=== PATIENT | male | born 1975 | race Caucasian/White ===

== ENCOUNTER 2021-12-02 19:30 | Emergency (ER) | payer OTHER, SELFPAY ==
--- NOTE | 2021-12-02 | ECG_ITS ---
Test Reason : EPIGASTRIC PAIN Blood Pressure : / mmHG Vent. Rate : 092 BPM Atrial Rate : 092 BPM P-R Int : 148 ms QRS Dur : 076 ms QT Int : 364 ms P-R-T Axes : 014 030 031 degrees QTc Int : 450 ms Normal sinus rhythm Normal ECG No previous ECGs available Referred By: Generic ED Physician Electronically Signed By:Kraig Law
--- NOTE | ~2021-12-02 | CT_ITS ---
EXAMINATION: CT ABDOMEN AND PELVIS WITHOUT CONTRAST CLINICAL INFORMATION: Left flank pain COMPARISON: None TECHNIQUE: Multidetector volumetric imaging was performed from the superior aspect of the liver through the pubic symphysis. Sagittal and coronal reformatted images were obtained on the technologist's workstation. This CT examination was performed using dose optimization techniques as appropriate, variously including the following: *Automated exposure control *Adjustment of mA and/or kV according to patient size (this includes techniques or standardized protocols for targeted exams where dose is matched to indication/reason for exam; i.e. extremities or head) *Use of iterative reconstruction technique DLP: 883 mGy-cm FINDINGS: LUNG BASES: The visualized lung bases are unremarkable. LIVER, GALLBLADDER, AND BILIARY TREE: Liver normal in size, contour and morphology. Diffuse hepatic steatosis. No focal liver lesions. No intrahepatic or extrahepatic biliary dilatation. Gallbladder unremarkable. PANCREAS: Unremarkable. SPLEEN: Unremarkable. ADRENAL GLANDS: Unremarkable. KIDNEYS AND URETERS: There is a 4 mm calculus in the proximal left ureter, 3.5 cm distal to the ureteropelvic junction at the level of the L3 vertebral body, associated mild upstream hydroureteronephrosis and perinephric stranding. No additional urinary calculi. Right kidney unremarkable. BLADDER: Unremarkable. GASTROINTESTINAL TRACT: There are a a few scattered colonic diverticula. No evidence of diverticulitis. Normal appendix. Stomach and small bowel unremarkable. ABDOMINAL WALL: No significant hernia is appreciated. LYMPH NODES: Normal. VASCULAR: Unremarkable. PELVIC VISCERA: Unremarkable. OSSEOUS STRUCTURES: No acute or suspicious osseous abnormalities. Moderate loss of disc space height at L5-S1 with accompanying endplate osteophytes. CT/CT abdomen pelvis wo con IMPRESSION: There is a 4 mm calculus proximal LEFT ureter associated with mild upstream hydroureteronephrosis and perinephric stranding. Fleischner guidelines were followed.
[2021-12-02 19:36] VITALS: BP 182/131; PULSE 89; RESP 14; TEMP 36.9; O2SAT 98; BMI 36.6
[2021-12-02 20:22] LABS: Basophils Percent Auto 0.3 % (0-2); Eosinophils Absolute Auto 0.4 X10*3/uL (0.0-0.4); Eosinophils Percent Auto 3.6 % (0-4); Hematocrit 45.3 % (42.0-52.0); Hemoglobin 15.1 g/dl (14.0-18.0); Imm Gran Abs Auto 0.08 X10*3/uL (0.00-0.03); Imm Gran Pct Auto 0.7 % (0.0-0.4); Lymphocytes Absolute Auto 1.2 X10*3/uL (1.2-4.9); MANUAL DIFF FLAG NO; Mean Corpuscular HGB Conc 33.3 g/dl (31.0-36.0); Mean Corpuscular Volume 86.9 fL (80.0-98.0); Mean Platelet Volume 8.7 fL (9.4-12.4); Monocytes Absolute Auto 0.7 X10*3/uL (0.1-1.2); Monocytes Percent Auto 5.7 % (2-11); Neutrophils Absolute Auto 9.4 x10*3/uL (2.0-8.3); Neutrophils Percent Auto 79.7 % (45-73); Platelet Count 277 X10*3/uL (160-400); Red Blood Count 5.21 X10*6/uL (4.60-5.80); Red Cell Distribution Width 12.8 % (11.0-16.0); White Blood Count 11.8 X10*3/uL (4.8-10.8)
[2021-12-02 20:37] LABS: Alanine Aminotransferase 39 U/L (0-40); Alkaline Phosphatase 101 U/L (39-117); Anion Gap 14 (12-20); Aspartate Amino Transferase 35 U/L (5-37); Bilirubin Total 0.6 mg/dL (0.0-1.0); Blood Urea Nitrogen 11 mg/dL (9-16); Calcium 9.4 mg/dL (8.4-10.2); Carbon Dioxide 19 mmol/L (22-29); Chloride 109 mmol/L (96-108); Creatinine Clr Calc Pharmacy 96.2; Estimated Glomerular Filt Rate 59; Glucose Random 128 mg/dL (60-115); Potassium 4.2 mmol/L (3.3-5.1); Sodium 138 mmol/L (135-145); Total Protein 6.8 g/dL (6.5-8.0)
[2021-12-02 21:10] VITALS: BP 180/111; PULSE 89; RESP 22; TEMP 37.1; O2SAT 97
[2021-12-02] MEDS: ondansetron HCL 4 MG/2 ML VIAL IVPUSH (21:27)
[2021-12-02] MEDS: 0.9 % Sodium Chloride 1,000 ML 999 ML IV (21:28)
--- NOTE | 2021-12-02 21:29 | ED_ITS ---
HPI - Abdominal Pain General Chief Complaint: Abdominal Pain Stated Complaint: back pain and nausea Time Seen by Provider: 12/02/21 21:14 Source: patient and family Mode of arrival: ambulatory History of Present Illness HPI narrative: 46-year-old male with history of hypertension who presents with acute onset of left flank pain that radiates down into the left groin an anterior abdomen associated with nausea and vomiting as well as chills throughout the day. Patient also reports some dysuria but otherwise denies any diarrhea, shortness of breath and denies any history of kidney stones. Related Data Previous Rx's Medication Instructions Recorded ketorolac 10 mg tablet 10 mg PO Q6H PRN 5 Days #20 tab 12/03/21 ondansetron 4 mg disintegrating 4 mg PO Q8H PRN #10 tab 12/03/21 tablet tamsulosin 0.4 mg capsule (Flomax) 0.4 mg PO BEDTIME #5 cap 12/03/21 Allergies Allergy/AdvReac Type Severity Reaction Status Date / Time No Known Allergies Allergy Unverified 05/05/20 17:51 [No Known Allergies*] Review of Systems Review of Systems Pertinent positives and negatives as stated in HPI 10 point review of systems is otherwise negative. PMFSH Past Medical History Source: nursing notes reviewed Social History Social History Advance Directives: No Physical Exam ED Vital Signs: Vital Signs - 24 hr 12/02/21 19:36 12/02/21 21:10 12/02/21 22:46 Temperature 98.5 F 98.7 F Pulse Rate 89 89 92 Respiratory Rate 14 22 H 22 H Blood Pressure 182/131 H 180/111 H 173/119 H Pulse Oximetry 98 97 97 BMI result Body Mass Index 36.6 VITAL SIGNS: Reviewed. GENERAL: Well developed, well nourished, in no acute distress. HEAD: Normocephalic/atraumatic EYES: PERRLA, EOMI EARS: Ext canals without abnormality OROPHARYNX: no oral lesions noted, posterior pharynx clear LUNGS: Normal breath sounds. No adventitious sounds or accessory muscle use. SpO2<98> CARDIOVASCULAR: Regular rate and rhythm without noted murmurs ABDOMEN: Soft, left flank pain on palpation, non-distended with bowel sounds. SKIN: Inspection of the skin reveals no rashes NEUROLOGIC: Alert and oriented x 4. Strength and sensation to light touch were grossly intact x 4. Course Course Course Narrative: 46-year-old male with history and clinical presentation consistent with renal colic and doubt pyelonephritis, diverticulitis. Review of all investigations consistent with 4 mm proximal left-sided ureteral stone with mild hydronephrosis, pain is currently controlled after receiving combination analgesics and nausea/vomiting has completely resolved. Patient is tolerating oral intake and is otherwise stable for discharge to home with continued medications and a referral to see Urology on Saturday morning. He was provided with strict return precautions. MDM - Abdominal Pain Lab Data Result diagrams: 12/02/21 20:15 12/02/21 20:15 Labs: Lab Results 12/02/21 12/02/21 12/02/21 Range/Units 20:15 20:15 23:12 WBC 11.8 H (4.8-10.8) X10*3/uL RBC 5.21 (4.60-5.80) X10*6/uL Hgb 15.1 (14.0-18.0) g/dl Hct 45.3 (42.0-52.0) % MCV 86.9 (80.0-98.0) fL MCH 29.0 (27.0-33.0) pg MCHC 33.3 (31.0-36.0) g/dl RDW 12.8 (11.0-16.0) % Plt Count 277 (160-400) X10*3/uL MPV 8.7 L (9.4-12.4) fL Immature Gran % (Auto) 0.7 H (0.0-0.4) % Neut % (Auto) 79.7 H (45-73) % Lymph % (Auto) 10.0 L (20-40) % [place] % (Auto) 5.7 (2-11) % Eos % (Auto) 3.6 (0-4) % Baso % (Auto) 0.3 (0-2) % Lymph # (Auto) 1.2 (1.2-4.9) X10*3/uL [place] # (Auto) 0.7 (0.1-1.2) X10*3/uL Eos # (Auto) 0.4 (0.0-0.4) X10*3/uL Baso # (Auto) 0.0 (0.0-0.2) X10*3/uL Abs Immat Gran (auto) 0.08 H (0.00-0.03) X10*3/uL Absolute Neuts (auto) 9.4 H (2.0-8.3) x10*3/uL Absolute Nucleated RBC 0.000 (0.0-0.012) X10*3/uL Nucleated RBC % (auto) 0.0 (0.0-0.2) /100WBC Sodium 138 (135-145) mmol/L Potassium 4.2 (3.3-5.1) mmol/L Chloride 109 H (96-108) mmol/L Carbon Dioxide 19 L (22-29) mmol/L Anion Gap 14 (12-20) BUN 11 (9-16) mg/dL Creatinine 1.31 (0.5-1.4) mg/dL Estim Creat Clear Calc 96.2 Estimated GFR 59 Random Glucose 128 H (60-115) mg/dL Calcium 9.4 (8.4-10.2) mg/dL Total Bilirubin 0.6 (0.0-1.0) mg/dL AST 35 (5-37) U/L ALT 39 (0-40) U/L Alkaline Phosphatase 101 (39-117) U/L Total Protein 6.8 (6.5-8.0) g/dL Albumin 4.0 (3.5-5.0) g/dL Urine Color YELLOW Urine Appearance HAZY Urine pH 5.5 (5.0-8.0) Ur Specific [place] >= 1.030 H (1.005-1.025) Urine Protein TRACE (NEG-TRACE) MG/DL Urine Glucose (UA) NEG (NEG) MG/DL Urine Ketones 5 (NEG) MG/DL Urine Blood 3+ H (NEG) Urine Nitrite NEG (NEG) Ur Leukocyte Esterase NEG (NEG) Urine RBC 30-49 H (0) /HPF Urine WBC 1-4 (0-4) /HPF Ur Squamous Epith Cells 1+ /LPF Calcium Oxalate Crystal 3+ /LPF Urine Bacteria 1+ /LPF Urine Mucus 2+ /LPF Discharge Plan Discharge Clinical Impression: Renal colic, Ureterolithiasis, Hydronephrosis Patient Disposition: Home, Self-Care Instructions: Renal Colic (ED), Low Oxalate Diet (ED), Hydronephrosis (ED), Ureteral Stones (ED) Additional Instructions: 1. Tylenol 1000 mg, orally, every 6 hours as needed for pain control. Do not exceed 4000 mg within 24 hours. 2. Increase water intake and avoid carbonated/caffeinated beverages. 3. You have been provided with a referral to see Urology for further evaluation of your stone. 4. You need to strain all urine and keep this stone if it passes. Return to the ER if you experience worsening of your symptoms. Prescriptions: New ketorolac 10 mg tablet 10 mg PO Q6H PRN (Reason: pain) 5 Days Qty: 20 0RF Rx Instructions: Patient received Toradol in the emergency room tamsulosin [Flomax] 0.4 mg capsule 0.4 mg PO BEDTIME Qty: 5 0RF ondansetron 4 mg tablet,disintegrating 4 mg PO Q8H PRN (Reason: nausea and vomiting) Qty: 10 0RF Referrals: Berry Barrera MD [Physician] - (4 mm left stone, patient discharged with good pain control with Toradol/Zofran/Flomax)
[2021-12-02] MEDS: Ketorolac Tromethamine 30 MG/ML VIAL 15 MG IVPUSH (21:31)
[2021-12-02 22:46] VITALS: BP 173/119; PULSE 92; RESP 22; O2SAT 97
[2021-12-02 23:18] LABS: Appearance Urine HAZY; Color Urine YELLOW; Glucose Urine UA NEG (NEG); Leukocyte Esterase Urine NEG (NEG); Nitrite Urine NEG (NEG); PH 5.5 (5.0-8.0); Specific Gravity - Urine >= 1.030 (1.005-1.025); UACC Culture Trigger NO; Urine Blood 3+ (NEG); Urine Ketones 5 MG/DL (NEG); Urine Protein TRACE MG/DL (NEG-TRACE)
[2021-12-02 23:24] LABS: Bacteria Urine 1+ /LPF; Calcium Oxalate Crystals Urine 3+ /LPF; Mucus Urine 2+ /LPF; RBC Urine 30-49 /HPF (0); Squamous Epithelial Cell Urine 1+ /LPF
[2021-12-03] MEDS: Tamsulosin HCL 0.4 MG CAPSULE PO (00:29)
[2021-12-03] MEDS: Ketorolac Tromethamine 30 MG/ML VIAL 15 MG IVPUSH (00:31)
[2021-12-03] MEDS: amLODIPine Besylate 5 MG TABLET PO (00:36)
[2021-12-03 01:02] VITALS: BP 146/95; PULSE 87; RESP 18; TEMP 37.1; O2SAT 97
== END 2021-12-03 01:28 | disposition home or self-care (01) ==
PROVIDERS: Emergency Provider Student in an Organized Health Care Education/Training Program
DX: N13.2 Hydronephrosis with renal and ureteral calculous obstruction (principal); R30.0 Dysuria; I10 Essential (primary) hypertension
CPT/HCPCS: 36415; 74176; 80053; 81001; 85025; 87040; 93005; 96361; 96374; 96375; 96376; 99285; J1885; J2405

== ENCOUNTER 2024-03-16 11:37 | Emergency (ER) | payer OTHER, SELFPAY ==
[2024-03-16 11:54] VITALS: BP 150/91; PULSE 91; RESP 16; TEMP 37; O2SAT 98; BMI 39.2
--- NOTE | 2024-03-16 11:57 | ED.GENADULT ---
HPI - General Adult General Chief complaint: Recheck/Abnormal Lab/Rx Stated complaint: BP high Time Seen by Provider: 03/16/24 18:08 Source: patient and old records reviewed Mode of arrival: ambulatory Limitations: no limitations History of Present Illness ED Provider: HERMINIO LAWSON narrative: 49 yo male with PMH of HTN on lisinopril 40mg daily and ADHD no meds since Saturday due to elevated BP reads, ETOH use heavy vodka drinker but reports 4 to 5 days a week and no hx of withdrawal here with c/o 3 days of dizziness, fatigue, intermittent bilateral blurry vision feels malaise and overall just not well. He notes he checked his blood pressure and it was 160/100s, 140s/100. He thought it was his BP his mom is here and notes that he drinks a lot. He states he is also anxious and under stress. The patient also reports chronic Fe deficiency anemia not on medications and he had colonoscopy with [facility] 4 years ago with polyp removal but not told to follow up. Has seen blood in stool before he reports but with straining MD complaint: dizziness, fatigue Onset (ago): day(s) (3) Radiation: non-radiation Severity: mild Relieving factors: none Exacerbating factors: movement Associated symptoms: malaise and weakness Treatments prior to arrival: none Related Data Home Medications ?Medication ?Instructions ?Recorded ?Confirmed dextroamphetamine-amphetamine ER 1 cap PO BID attention deficit 03/16/24 03/16/24 30 mg 24hr capsule,extend release hyperactivity disorder lisinopril 40 mg tablet 40 mg PO DAILY 03/16/24 03/16/24 Previous Rx's ?Medication ?Instructions ?Recorded ketorolac 10 mg tablet 10 mg PO Q6H PRN pain 5 days #20 12/03/21 tabs ondansetron 4 mg disintegrating 4 mg PO Q8H PRN nausea and 12/03/21 tablet vomiting #10 tabs tamsulosin 0.4 mg capsule (Flomax) 0.4 mg PO BEDTIME #5 caps 12/03/21 chlordiazepoxide HCl 25 mg capsule 50 mg (2 x 25 mg) PO Q4H PRN 03/16/24 alcohol withdrawal 6 doses #12 caps ferrous sulfate 325 mg (65 mg 325 mg PO DAILY #30 tabs 03/16/24 iron) tablet omeprazole 20 mg capsule,delayed 20 mg PO DAILY #30 caps 03/16/24 release Allergies Allergy/AdvReac Type Severity Reaction Status Date / Time No Known Allergies Allergy Verified 03/16/24 11:59 [No Known Allergies*] Review of Systems Review of Systems: Constitutional : No Fever, No Chills, pos Fatigue ENT/Mouth : No sore throat, No Rhinorrhea Eyes: No Eye Pain, No Swelling, No Redness Cardiovascular : No Chest Pain, No SOB, No Dyspnea on Exertion Respiratory : No Cough, No Sputum Gastrointestinal : No Nausea, No Vomiting, No Diarrhea, No abdominal Pain Genitourinary : No Dysuria, No Urinary Frequency, No Hematuria, Musculoskeletal : No joint pain, No Myalgias, No Joint Swelling Skin : No Skin Lesions, No rash Neuro : pos Weakness, No Numbness, pos Dizziness, positive Headache Psych : pos Anxiety/Panic, No Depression Heme/Lymph: No Bruising, No Bleeding,No Lymphadenopathy Endocrine : No Polyuria, No Polydipsia All other systems reviewed and are negative [facility] Past Medical History Attestation statement: The following information was validated with the patient. Source: old records reviewed Medical History (Updated 03/16/24 @ 19:54 by Sangeeta Mcdaniels DO) HTN (hypertension) Social History Social History (Updated 03/16/24 @ 18:13 by Sangeeta Mcdaniels DO) Alcohol intake: current Patient Tobacco Use Status: Never used Tobacco Smoked in Last 30 Days: Yes Use of substances other than those prescribed or required for medical reasons: No Advance Directives: No Advance Directives Information Provided: No Physical Exam ED Vital Signs: Vital Signs - 24 hr 03/16/24 11:54 03/16/24 18:25 03/16/24 19:30 Temperature 98.6 F Pulse Rate 91 87 80 Respiratory Rate 16 17 Blood Pressure 150/91 H 163/89 H 142/82 H Pulse Oximetry 98 97 Oxygen Delivery Method Room Air Room Air 03/16/24 19:31 03/16/24 19:33 Temperature Pulse Rate 85 83 Respiratory Rate Blood Pressure 151/107 H 155/99 H Pulse Oximetry Oxygen Delivery Method BMI result Body Mass Index 39.2 Appearance: Alert. Oriented X3. No acute distress. Eyes: Pupils equal, round and reactive to light. ENT: Pharynx normal. Neck: Normal inspection. Neck supple. CVS: Normal heart rate and rhythm. Pulses normal. Respiratory: No respiratory distress. Breath sounds normal. Abdomen: Soft and nontender. Rectal: brown some blood faint pink noted Skin: Skin warm and dry. pale skin color. Normal skin turgor. Extremities: No lower extremity edema. No calf ttp Neuro: Oriented X 3. No motor deficit. No sensory deficit. Course Course Course Narrative: This is an RME: Additional HPI, ROS, PE not included below will be deferred to primary provider. RME assessment and note performed by: Lakisha Ladd PA-C This is a 89-hbwi-fem-male, with a hx of hypertension, who presents to the emergency department with multiple complaints. He states that over the weekend his blood pressure has been elevated, he takes lisinopril mg and took it today. He endorses, feeling fatigued as well as bilateral hand feet and tingling. He states that he typically drinks 3 times a week averaging about 4 shots of hard liquor Plan: Labs, EKG, further ER evaluation needed Reevaluation(s) Reevaluation #1: CBC remains stable Reevaluation #2: H/H stable work up negative no drop in CBC will start on Fe and refer him to GI negative orthostatics Medical Decision Making Medical Decision Making [facility] Narrative: 49 yo male with PMH of HTN on lisinopril 40mg daily and ADHD here with c/o HTN, dizziness, fatigue, found to be more anemic but not compliant with Fe also had polyps 4 years ago but no GI follow up through [place]. His family also notes he drinks so it is likely a combination of anxiety, ADHD, ETOH use - at this time will obtain Fe panel, B12 folate, test stool, repeat CBC, ortho VS, monitor BP, start on thiamine, folic acid, Fe and possible ativan. Pending CBC may admit Differential Diagnosis Differential Diagnoses: The differential diagnosis associated with the presentation includes anemia, dehydration, ETOH use, anxiety Admission/Observation Consideration of admission/observation: Escalation of care including admission/observation considered Lab Data [facility] Lab Attestation statement: I reviewed the patient's lab results. 03/16/24 18:32 03/16/24 12:11 Labs: Lab Results 03/16/24 03/16/24 Range/Units 12:11 18:32 WBC 8.7 9.3 (4.8-10.8) X10*3/uL RBC 4.84 4.76 (4.60-5.80) X10*6/uL Hgb 10.6 L D 10.4 L (14.0-18.0) g/dl Hct 35.5 L D 35.1 L (42.0-52.0) % MCV 73.3 L 73.7 L (80.0-98.0) fL MCH 21.9 L 21.8 L (27.0-33.0) pg MCHC 29.9 L 29.6 L (31.0-36.0) g/dl RDW 15.2 15.3 (11.0-16.0) % Plt Count 262 276 (160-400) X10*3/uL MPV 8.9 L 9.2 L (9.4-12.4) fL Immature Gran % (Auto) 0.5 H (0.0-0.4) % Neut % (Auto) 71.1 (45-73) % Lymph % (Auto) 19.8 L (20-40) % [place] % (Auto) 4.9 (2-11) % Eos % (Auto) 3.2 (0-4) % Baso % (Auto) 0.5 (0-2) % Lymph # (Auto) 1.7 (1.2-4.9) X10*3/uL [place] # (Auto) 0.4 (0.1-1.2) X10*3/uL Eos # (Auto) 0.3 (0.0-0.4) X10*3/uL Baso # (Auto) 0.0 (0.0-0.2) X10*3/uL Abs Immat Gran (auto) 0.04 H (0.00-0.03) X10*3/uL Absolute Neuts (auto) 6.2 (2.0-8.3) x10*3/uL Absolute Nucleated RBC 0.000 0.000 (0.0-0.012) X10*3/uL Nucleated RBC % (auto) 0.0 0.0 (0.0-0.2) /100WBC Sodium 138 (135-145) mmol/L Potassium 4.0 (3.3-5.1) mmol/L Chloride 109 H (96-108) mmol/L Carbon Dioxide 25 (22-29) mmol/L Anion Gap 8 L (12-20) BUN 8 L (9-16) mg/dL Creatinine 0.96 (0.5-1.4) mg/dL Estim Creat Clear Calc 131.8 Estimated GFR > 60 Random Glucose 145 H (60-115) mg/dL Calcium 8.9 (8.4-10.2) mg/dL Magnesium 1.9 (1.6-2.6) mg/dL Iron 22 L (45-160) mcg/dL TIBC 384 (228-428) mcg/dL % Saturation 6 L (15-50) % Unsat Iron Binding 362 ug/dL Total Bilirubin 0.4 (0.0-1.0) mg/dL Direct Bilirubin 0.1 (0.0-0.5) mg/dL AST 18 (5-37) U/L ALT 21 (0-40) U/L Alkaline Phosphatase 67 (39-117) U/L Troponin I High Sens < 2.7 (<3.5-35.0) ng/L Total Protein 6.7 (6.5-8.0) g/dL Albumin 3.9 (3.5-5.0) g/dL Lipase 22 (8-78) U/L Stool Occult Blood POSITIVE (NEGATIVE) Ethyl Alcohol < 10 mg/dL Influenza Type A (PCR) NEGATIVE (Negative) Influenza Type B (PCR) NEGATIVE (Negative) RSV RNA Qual (PCR) NEGATIVE (Negative) SARS-CoV-2 RNA (RT-PCR) NEGATIVE (Negative) Independent Interpretation I performed an independent interpretation of an: EKG Interpretation: Rate: 83 Rhythm: NSR [place]: normal Normal P waves. Normal EVERT. Normal QRS complex. ST T wave : normal no EDUARDA qTC: 446 prior studies: no acute ischemia The study has been interpreted contemporaneously by me. . External Record Review External record reviewed: Outpatient record Discharge Plan Discharge Clinical Impression: Rectal bleed, Alcohol use disorder Fe deficiency anemia Qualifiers: Iron deficiency anemia type: unspecified iron deficiency Qualified Code(s): D50.9 - Iron deficiency anemia, unspecified Patient Disposition: Home, Self-Care Instructions: Rectal Bleeding (ED), Iron Deficiency Anemia (ED), Abuse of Alcohol (ED) Additional Instructions: counts remained stable your Fe is low. You have evidence of some blood in your stool but your hemoglobin did not drop in the 10 hours you were here. Your blood pressure did not drop when you were here. You need to take the Fe pills. You need to stop drinking alcohol and avoid aspirin, motrin, aleve. please call the GI doctor listed below and return for any worsening symptoms or concerns. please follow up with your primary care doctor as well Prescriptions: New ferrous sulfate 325 mg (65 mg iron) tablet 325 mg PO DAILY Qty: 30 1RF chlordiazepoxide HCl 25 mg capsule 50 mg PO Q4H PRN (Reason: alcohol withdrawal) Qty: 12 0RF Rx Instructions: until symptoms controlled omeprazole 20 mg capsule,delayed release(DR/EC) 20 mg PO DAILY Qty: 30 0RF No Action ketorolac 10 mg tablet 10 mg PO Q6H PRN (Reason: pain) 5 Days Qty: 20 0RF Rx Instructions: Patient received Toradol in the emergency room tamsulosin [Flomax] 0.4 mg capsule 0.4 mg PO BEDTIME Qty: 5 0RF ondansetron 4 mg tablet,disintegrating 4 mg PO Q8H PRN (Reason: nausea and vomiting) Qty: 10 0RF dextroamphetamine-amphetamine 30 mg capsule,extended release 24hr 1 cap PO BID lisinopril 40 mg tablet 40 mg PO DAILY Referrals: Emmy Grady, [employer]PA[employer]-BC [Nurse Practitioner] - (GI doctor) Print Language: Norwegian
--- NOTE | 2024-03-16 12:00 | ECG_ITS ---
Test Reason : chest tightmess/ high bp Blood Pressure : / mmHG Vent. Rate : 083 BPM Atrial Rate : 083 BPM P-R Int : 156 ms QRS Dur : 080 ms QT Int : 380 ms P-R-T Axes : 015 029 041 degrees QTc Int : 446 ms Normal sinus rhythm with sinus arrhythmia Normal ECG When compared with ECG of 02-DEC-2021 20:16, No significant change was found Referred By: Lakisha Ladd Electronically Signed By:Kraig Law
[2024-03-16 12:16] LABS: MANUAL DIFF FLAG NO
[2024-03-16 12:28] LABS: Basophils Percent Auto 0.5 % (0-2); Eosinophils Absolute Auto 0.3 X10*3/uL (0.0-0.4); Eosinophils Percent Auto 3.2 % (0-4); Hematocrit 35.5 % (42.0-52.0); Hemoglobin 10.6 g/dl (14.0-18.0); Imm Gran Abs Auto 0.04 X10*3/uL (0.00-0.03); Imm Gran Pct Auto 0.5 % (0.0-0.4); Lymphocytes Absolute Auto 1.7 X10*3/uL (1.2-4.9); Lymphocytes Percent Auto 19.8 % (20-40); Mean Corpuscular HGB Conc 29.9 g/dl (31.0-36.0); Mean Corpuscular Hemoglobin 21.9 pg (27.0-33.0); Mean Corpuscular Volume 73.3 fL (80.0-98.0); Mean Platelet Volume 8.9 fL (9.4-12.4); Monocytes Absolute Auto 0.4 X10*3/uL (0.1-1.2); Monocytes Percent Auto 4.9 % (2-11); Neutrophils Absolute Auto 6.2 x10*3/uL (2.0-8.3); Neutrophils Percent Auto 71.1 % (45-73); Platelet Count 262 X10*3/uL (160-400); Red Blood Count 4.84 X10*6/uL (4.60-5.80); Red Cell Distribution Width 15.2 % (11.0-16.0)
[2024-03-16 12:29] LABS: White Blood Count 8.7 X10*3/uL (4.8-10.8)
[2024-03-16 12:38] LABS: Ethanol < 10 mg/dL
[2024-03-16 12:39] LABS: Alanine Aminotransferase 21 U/L (0-40); Albumin Level 3.9 g/dL (3.5-5.0); Alkaline Phosphatase 67 U/L (39-117); Anion Gap 8 (12-20); Aspartate Amino Transferase 18 U/L (5-37); Bilirubin Direct 0.1 mg/dL (0.0-0.5); Bilirubin Total 0.4 mg/dL (0.0-1.0); Blood Urea Nitrogen 8 mg/dL (9-16); Calcium 8.9 mg/dL (8.4-10.2); Carbon Dioxide 25 mmol/L (22-29); Chloride 109 mmol/L (96-108); Creatinine Clr Calc Pharmacy 131.8; Estimated Glomerular Filt Rate > 60; Glucose Random 145 mg/dL (60-115); Lipase 22 U/L (8-78); Magnesium 1.9 mg/dL (1.6-2.6); Sodium 138 mmol/L (135-145); Total Protein 6.7 g/dL (6.5-8.0)
[2024-03-16 12:47] LABS: Troponin-I High Sensitivity < 2.7 ng/L (<3.5-35.0)
[2024-03-16 12:58] LABS: Influenza A PCR NEGATIVE (Negative); Influenza B PCR NEGATIVE (Negative); Resp Syncy Virus RNA Qual PCR NEGATIVE (Negative); SARS COV2 PCR INHOUSE NEGATIVE (Negative)
[2024-03-16 18:25] VITALS: BP 163/89; PULSE 87; RESP 17; O2SAT 97
[2024-03-16 18:56] LABS: OBS Int Ctl Valid YES; OBS1 POSITIVE (NEGATIVE)
[2024-03-16 18:57] LABS: Iron 22 mcg/dL (45-160); Percent Iron Saturation 6 % (15-50); Total Iron Binding Capacity 384 mcg/dL (228-428); Unsaturated Iron Binding 362 ug/dL
[2024-03-16 19:08] LABS: Hematocrit 35.1 % (42.0-52.0); Hemoglobin 10.4 g/dl (14.0-18.0); Mean Corpuscular HGB Conc 29.6 g/dl (31.0-36.0); Mean Corpuscular Hemoglobin 21.8 pg (27.0-33.0); Mean Corpuscular Volume 73.7 fL (80.0-98.0); Mean Platelet Volume 9.2 fL (9.4-12.4); Platelet Count 276 X10*3/uL (160-400); Red Blood Count 4.76 X10*6/uL (4.60-5.80); Red Cell Distribution Width 15.3 % (11.0-16.0); White Blood Count 9.3 X10*3/uL (4.8-10.8)
[2024-03-16 19:30] VITALS: BP 142/82; PULSE 80
[2024-03-16 19:31] VITALS: BP 151/107; PULSE 85
[2024-03-16 19:33] VITALS: BP 155/99; PULSE 83
[2024-03-16 20:13] LABS: Folate 5.8 ng/mL (> or = 4.0); Vitamin B12 252 pg/mL (200-900)
[2024-03-16 20:18] VITALS: BP 155/99; PULSE 83; RESP 16; TEMP 36.8; O2SAT 100
== END 2024-03-16 20:20 | disposition home or self-care (01) ==
PROVIDERS: Physician Assistant Medical; Emergency Provider Emergency Medicine
DX: K62.5 Hemorrhage of anus and rectum (principal); I49.8 Other specified cardiac arrhythmias; F10.10 Alcohol abuse, uncomplicated; Y90.0 Blood alcohol level of less than 20 mg/100 ml; Z03.818 Encounter for observation for suspected exposure to other biological agents ruled out; Z51.81 Encounter for therapeutic drug level monitoring
CPT/HCPCS: 0241U; 36415; 80048; 80076; 80307; 82272; 82607; 82746; 83540; 83690; 83735; 84484; 85025; 85027; 93005; 99283; 99285

== ENCOUNTER → 2024-03-16 12:00 | Outpatient (BNV) | payer OTHER, SELFPAY | PROVIDERS: Visit Provider Internal Medicine Cardiovascular Disease | DX: R07.89 Other chest pain (principal) | CPT/HCPCS: 93010 ==